=== PATIENT | male | born 1975 | race Caucasian/White ===

== ENCOUNTER 2023-02-06 16:25 | Emergency (ER) | payer BC ==
[2023-02-06] MEDS ORDERED: Diphtheria,Pertussis(Acell),Tetanus Vaccine 0.5 ML Syringe IM ONE (17:00)
[2023-02-06 17:22] VITALS: BP 129/64; PULSE 58
[2023-02-06] MEDS ORDERED: Lidocaine 1% 5 ML VIAL INJECT ONE (17:34)
[2023-02-06] MEDS ORDERED: Bacitracin Oint 1 GM U/D Packet TOP ONE (17:45)
== END 2023-02-06 18:11 | disposition home or self-care (01) ==
LOC: MW.ED 16:25
DX: S61.411A Laceration without foreign body of right hand, initial encounter (principal); Z23 Encounter for immunization; W26.8XXA Contact with other sharp object(s), not elsewhere classified, initial encounter
CPT/HCPCS: 12001; 90471; 90715; 99282-25; J3490